=== PATIENT | male | born 1940 | race Caucasian/White ===

== ENCOUNTER → 2017-06-15 | Outpatient (REF) | payer BC | LOC: M LAB REF 19:38 | PROVIDERS: ATTEND Physician Assistant Medical | DX: N30.01 Acute cystitis with hematuria (principal) ==

== ENCOUNTER 2021-05-10 10:38 | Inpatient (IN) | payer MEDICARE, BC ==
[~2021-05-10] VITALS: Ht 157.5 cm; Wt 74.4 kg
--- NOTE | 2021-05-10 11:34 | REPVR ---
PROCEDURE INFORMATION: Exam: CT Cervical Spine Without Contrast Exam date and time: 05/10/2021 11:03 AM Age: 80 years old Clinical indication: Neck pain; Additional info: Fall injury TECHNIQUE: Imaging protocol: Computed tomography images of the cervical spine without contrast. Radiation optimization: All CT scans at this facility use at least one of these dose optimization techniques: automated exposure control; mA and/or kV adjustment per patient size (includes targeted exams where dose is matched to clinical indication); or iterative reconstruction. COMPARISON: No relevant prior studies available. FINDINGS: Bones/joints: There is straightening of the normal cervical lordosis. There is 2 mm of grade 1 retrolisthesis of C4 with respect to C5 and C5 with respect to C6. Normal vertebral body alignment is otherwise preserved. Discs/Spinal canal/Neural foramina: There is severe intervertebral disc space loss at C4/5 and C5/6. Lungs: Lung apices are normal. Soft tissues: Unremarkable. IMPRESSION: No acute findings. Electronically signed by: Nicki Zuluaga On 05/10/2021 11:34:22 AM
--- NOTE | 2021-05-10 11:36 | REPVR ---
PROCEDURE INFORMATION: Exam: CT Head Without Contrast Exam date and time: 05/10/2021 11:03 AM Age: 80 years old Clinical indication: Pain; Headache; Additional info: Fall TECHNIQUE: Imaging protocol: Computed tomography of the head without contrast. Radiation optimization: All CT scans at this facility use at least one of these dose optimization techniques: automated exposure control; mA and/or kV adjustment per patient size (includes targeted exams where dose is matched to clinical indication); or iterative reconstruction. COMPARISON: No relevant prior studies available. FINDINGS: Brain: There is no acute intracranial hemorrhage or mass effect. Moderate diffuse volume loss is within the range of normal for patient age. There are small vessel ischemic changes within the periventricular and subcortical white matter, but the normal eaton-white matter delineation is maintained. Cerebral ventricles: Prominence of the ventricular system is commensurate with volume loss. Paranasal sinuses: There is opacification of ethmoid air cells. Mastoid air cells: Visualized mastoid air cells are well aerated. Bones/joints: Unremarkable. No acute fracture. Soft tissues: Unremarkable. IMPRESSION: No acute hemorrhage or calvarial fracture. Chronic changes. Electronically signed by: Nicki Zuluaga On 05/10/2021 11:36:21 AM
[2021-05-10 11:59] LABS: BASO # 0.1 10^3/uL (0.0-0.2); EOS # 0.5 10^3/uL (0.0-0.5); EOS % 5.4 % (0.0-3.0); HEMATOCRIT 37.2 % (42.0-52.0); HEMOGLOBIN 13.2 g/dl (13.5-17.5); LYMPH # 0.8 10^3/uL (1.5-5.0); LYMPH % 8.6 % (24.0-44.0); MEAN CORPUSCULAR HEMOGLOBIN 31.6 pg (27.0-33.0); MEAN CORPUSCULAR HGB CONC 35.5 g/dl (32.0-36.5); NEUTROPHILS # 6.9 10^3/uL (1.5-8.5); NEUTROPHILS % 73.4 % (36.0-66.0); PLATELET COUNT, AUTOMATED 239 10^3/uL (150-450); RED BLOOD COUNT 4.18 10^6/uL (4.30-6.10); WHITE BLOOD COUNT 9.3 10^3/uL (4.0-10.0)
[2021-05-10 12:40] LABS: ALBUMIN 3.5 GM/DL (3.2-5.2); ALT/SGPT 25 U/L (12-78); BILIRUBIN,DIRECT 0.3 MG/DL (0.0-0.2); BILIRUBIN,TOTAL 1.1 MG/DL (0.2-1.0); BLOOD UREA NITROGEN 10 MG/DL (7-18); CALCIUM LEVEL 8.4 MG/DL (8.8-10.2); CARBON DIOXIDE LEVEL 28 MEQ/L (21-32); CHLORIDE LEVEL 86 MEQ/L (98-107); CK-MB VALUE MASS 11.1 NG/ML (<3.6); CPK CREATINE PHOSPHOKINASE 710 U/L (39-308); CREATININE FOR GFR 0.69 MG/DL (0.70-1.30); GLOMERULAR FILTRATION RATE > 60.0 (>35); GLUCOSE, FASTING 93 MG/DL (70-100); MB/CK RELATIVE INDEX 1.56 (< OR =4); POTASSIUM SERUM 4.2 MEQ/L (3.5-5.1); SODIUM LEVEL 121 MEQ/L (136-145); TOTAL PROTEIN 6.1 GM/DL (6.4-8.2); TROPONIN I < 0.02 NG/ML (< 0.10)
[2021-05-10] MEDS ORDERED: NS 500 ML IV ONE (12:40)
--- NOTE | 2021-05-10 13:04 | REP ---
INDICATION: fall;syncope. COMPARISON: Two view exam of 05/28/2014 TECHNIQUE: Portable FINDINGS: The technique utilized in obtaining the radiograph has magnified the cardiac silhouette and attenuated the interstitial markings. The cardiomediastinal silhouette lung escalante are unchanged. The heart is not enlarged. Lung escalante are clear. There is no change in the osseous structures. Once again, note is made of multiple vertebral body compression deformities. IMPRESSION: No acute cardiopulmonary disease. Other findings as described above. <Electronically signed by Juarez Davidson > 05/10/21 [id number]
[2021-05-10 13:19] LABS: MAGNESIUM LEVEL 2.2 MG/DL (1.8-2.4); NT-PRO BNP 240 PG/ML (<450)
[2021-05-10] MEDS ORDERED: NS 1,000 ML IV SCH (13:25)
[2021-05-10 14:00] LABS: RSV AMPLIFICATION NEGATIVE (NEGATIVE)
--- NOTE | 2021-05-10 14:03 | HPEPDOC ---
[facility] Medical History & Physical Date of Admission May 10, 2021 Date of Service: May 10, 2021 History and Physical CHIEF COMPLAINT: syncope HISTORY OF PRESENT ILLNESS: 80-year-old gentleman presents for a syncopal episode that occurred early this morning while he was urinating. This fall was unwitnessed, but a loud "thud" was heard by his and he was found passed out. He states this has occurred in the remote past. He also notes a several week history of worsening lower extremity edema for which she was recently started on Lasix 20 mg twice a day (two weeks ago). He denies any other medical complaints. He denies chest pain, shortness of breath, abdominal pain, nausea, vomiting, diarrhea. His states he does have dyspnea on exertion. In the emergency room he was found to be orthostatic and IV fluids - NS were administered. PAST MEDICAL HISTORY: #CHF- unknown type #HTN #HLD #osteoporosis PAST SURGICAL HISTORY: #non-invasive back surgery SOCIAL HISTORY: Marital status: Resides in: [place], [place] Tobacco use: Never smoker ETOH: rarely Family History: Non-contributory ALLERGIES: Please see below. REVIEW OF SYSTEMS: Negative except as per HPI HOME MEDICATIONS: Please see below. PHYSICAL EXAMINATION: VITAL SIGNS: See below General: NAD, lying comfortably in bed, elderly HEENT: NC/AT, EOMI Lungs: CTA B/L Heart: +S1S2, RRR, systolic murmur Abd: soft, obese, NT, +BS Ext: 3+ bilateral LE edema Neuro: AAOx3, no gross focal deficits LABORATORY DATA: See below. MICROBIOLOGY: Please see below. A/P: 80-year-old male for syncopal episode during micturition, and worsening lower extremity edema. PMHx of CHF (unknown type), HTN, HLD. Admitted for hyponatremia, lower extremity edema and syncope. #LE edema - LE ultrasound - echocardiogram - telemetry - I/O's - repeat trops #hyponatremia - further labs pending - nephrology c/s pending - taper sertraline - hold ARB #BPH - continue home medications - finasteride, proscar #syncope - telemetry - echocardiogram - check orthostatics #HTN - holding ARB (losartan) - continue verapamil #HLD - continue statin therapy #depression - taper sertraline due to hyponatremia #DVT prophylaxis - mechanical Vital Signs Vital Signs Date Time Temp Pulse Resp B/P (MAP) Pulse Ox O2 Delivery O2 Flow Rate FiO2 05/10/21 13:30 74 173/93 (119) 95 05/10/21 10:39 97.9 18 Room Air Laboratory Data Labs 24H Laboratory Tests 2 05/10/21 11:43: Immature Granulocyte % (Auto) 0.6, Neutrophils (%) (Auto) 73.4H, Lymphocytes (%) (Auto) 8.6L, Monocytes (%) (Auto) 11.0H, Eosinophils (%) (Auto) 5.4H, Basophils (%) (Auto) 1.0, Neutrophils # (Auto) 6.9, Lymphocytes # (Auto) 0.8L, Monocytes # (Auto) 1.0H, Eosinophils # (Auto) 0.5, Basophils # (Auto) 0.1, Nucleated Red Blood Cells % (auto) 0.0, Anion Gap 7L, Glomerular Filtration Rate > 60.0, Calci um Level 8.4L, Magnesium Level 2.2, Total Bilirubin 1.1H, Direct Bilirubin 0.3H, Aspartate Amino Transf (AST/SGOT) 33, Alanine Aminotransferase (ALT/SGPT) 25, Alkaline Phosphatase 61, Total Creatine Kinase 710H, Creatine Kinase MB 11.1H, Creatine Kinase MB Relative Index 1.56, Troponin I < 0.02, LA-Rkc-R-Type Natriuretic Peptide 240, Total Protein 6.1L, Albumin 3.5, Albumin/Globulin Ratio 1.3, Thyroid Stimulating Hormone (TSH) 1.350 05/10/21 13:06: CBC/BMP Laboratory Tests 05/10/21 11:43 Home Medications Scheduled Acetaminophen (Tylenol Extra Strength) 500 Mg Tablet, 1,000 MG PO TID ALTERNATE WITH IBUPROFEN Ascorbic Acid (Vitamin C) 500 Mg Tablet, 1,000 MG PO DAILY Cholecalciferol (Vitamin D3) (Vitamin D3) 1,000 Unit Tablet, 2,000 UNITS PO DAILY Denosumab Injection (Prolia) 60 Mg/1 Ml Syringe, 60 MG SC ASDIRECTED EVERY 6 MONTHS Finasteride (Finasteride) 5 Mg Tablet, 5 MG PO QHS Furosemide (Furosemide) 20 Mg Tablet, 20 MG PO DAILY Gabapentin (Gabapentin) 300 Mg Capsule, 300 MG PO BID Gluc Fernandez/Chondro Fernandez A/Vit C/Mn (Glucosamine Chondroitin Tab) 1 Each Tablet, 1 TAB PO BID Guaifenesin (Guaifenesin) 200 Mg Tablet, 400 MG PO DAILY Ibuprofen (Ibuprofen) 200 Mg Capsule, 200 MG PO TID ALTERNATE WITH TYLENOL Losartan Potassium (Losartan Potassium) 50 Mg Tablet, 50 MG PO DAILY Pravastatin Sodium (Pravastatin Sodium) 20 Mg Tablet, 20 MG PO QHS Psyllium Husk (with Sugar) (Metamucil Powder) 575 Gm Powder, 1 PKT PO DAILY Salmeterol/Fluticasone (Advair 250-50 Diskus) 1 Each Blst.w.dev, 1 PUFF INH BID Sertraline HCl (Sertraline HCl) 50 Mg Tablet, 50 MG PO DAILY Tamsulosin HCl (Flomax) 0.4 Mg Capsule, 0.4 MG PO DAILY TAKES AT 1430 Verapamil HCl (Verapamil HCl) 360 Mg Cap24h.pel, 360 MG PO DAILY Vit C/E/Zn/Coppr/Lutein/Zeaxan (Preservision Areds 2 Softgel) 1 Each Capsule, 1 CAP PO BID Allergies Coded Allergies: lisinopril (Verified Allergy, Unknown, Itching, hives, 05/10/21) A-FIB/CHADSVASC A-FIB History Current/History of A-Fib/PAF?: No KARLOS UMANZOR MD May 10, 2021 14:03
[2021-05-10 14:58] LABS: FREE T4 0.96 NG/DL (0.76-1.46)
[2021-05-10 15:00] LABS: OSMOLALITY SERUM 246 MOSM/KG (280-301)
[2021-05-10 15:02] LABS: OSMOLALITY URINE 89 MOSM/KG (50-1400)
[2021-05-10 15:26] LABS: CREATININE,RANDOM URINE < 13.0 MG/DL; SODIUM,RANDOM URINE 17 MEQ/L
[2021-05-10] MEDS ORDERED: GLUCTAB6 PO (15:28)
[2021-05-10] MEDS ORDERED: PROL60SO SC (15:28)
[2021-05-10] MEDS ORDERED: ACET-897 PO (15:28)
[2021-05-10] MEDS ORDERED: VERA360C PO (15:28)
[2021-05-10] MEDS ORDERED: GABA-282 PO (15:28)
[2021-05-10] MEDS ORDERED: IBUP200C29 PO (15:28)
[2021-05-10] MEDS ORDERED: PRAV20TA2 PO (15:28)
[2021-05-10] MEDS ORDERED: FURO20TA2 PO (15:28)
[2021-05-10] MEDS ORDERED: ADV250INH INH (15:28)
[2021-05-10] MEDS ORDERED: META28.32 PO (15:28)
[2021-05-10] MEDS ORDERED: FINA5TAB2 PO (15:28)
[2021-05-10] MEDS ORDERED: GUAI200T6 PO (15:28)
[2021-05-10] MEDS ORDERED: D31000TA2 PO (15:28)
[2021-05-10] MEDS ORDERED: LOSA50TA88 PO (15:28)
[2021-05-10] MEDS ORDERED: PRES10CA2 PO (15:28)
[2021-05-10] MEDS ORDERED: FLOM0.4C39 PO (15:28)
[2021-05-10] MEDS ORDERED: SERT50TA29 PO (15:28)
[2021-05-10] MEDS ORDERED: VITA-243 PO (15:28)
[2021-05-10 16:06] VITALS: BP_SYST 142; BP_SYST 172; BP_SYST 175; BP_DIAS 77; BP_DIAS 85; BP_DIAS 88
[2021-05-10] MEDS: ACETAMINOPHEN 500 MG TAB PO SCH ×2 (17:19→20:55)
[2021-05-10] MEDS: ADVAIR HFA 115/21MCG INHALER INH SCH (19:24)
[2021-05-10 19:49] LABS: ALBUMIN 3.4 GM/DL (3.2-5.2); BLOOD UREA NITROGEN 10 MG/DL (7-18); CALCIUM LEVEL 7.9 MG/DL (8.8-10.2); CARBON DIOXIDE LEVEL 28 MEQ/L (21-32); CHLORIDE LEVEL 92 MEQ/L (98-107); CREATININE FOR GFR 0.73 MG/DL (0.70-1.30); GLOMERULAR FILTRATION RATE > 60.0 (>35); GLUCOSE, FASTING 108 MG/DL (70-100); PHOSPHORUS LEVEL 3.3 MG/DL (2.5-4.9); POTASSIUM SERUM 4.2 MEQ/L (3.5-5.1); SODIUM LEVEL 127 MEQ/L (136-145)
--- NOTE | 2021-05-10 19:52 | ECGEPIP ---
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
[2021-05-10 20:00] VITALS: BP_SYST 152; BP_SYST 160; BP_SYST 164; BP_DIAS 84; BP_DIAS 90
[2021-05-10] MEDS: PRAVASTATIN 20 MG TAB PO SCH (20:55)
[2021-05-10] MEDS: GABAPENTIN 300 MG CAP PO SCH (20:55)
[2021-05-10] MEDS: FINASTERIDE 5 MG TAB PO SCH (20:55)
--- NOTE | 2021-05-10 23:27 | CR ---
CONSULTATION DATE: 05/10/2021 REQUESTING PHYSICIAN: Dr. Robi Fisher CONSULTING PHYSICIAN: Dr. William REASON FOR CONSULTATION: Management of hyponatremia. CHIEF COMPLAINT: Patient presented to the hospital today after syncope. HISTORY OF PRESENT ILLNESS: Harvey Nielsen is an 80-year-old male with past medical history of hypertension, possible congestive heart failure, osteoporosis, who was recently started on Lasix 20 mg twice a day for lower extremity edema. He had syncope at home today. He was brought to the Emergency Room. Patient complained of worsening weakness. He otherwise denies any chest pain, shortness of breath, nausea, vomiting or abdominal pain. Patient was found to have orthostatic hypotension in the Emergency Room along with a serum sodium of 121. He was admitted under the hospitalist service. He was started on I.V. fluid hydration. Nephrology service was called for further help in the management of this patient. Patient was seen and examined by myself in the evening today at the bedside. His was also present at the bedside. Patient was awake and alert today, and was able to provide me with the history. PAST MEDICAL HISTORY: Hypertension, questionable congestive heart failure, hyperlipidemia, osteoporosis, history of BPH. PAST SURGICAL HISTORY: History of back surgery in the past. FAMILY HISTORY: No significant family history of end-stage renal disease requiring hemodialysis. SOCIAL HISTORY: Patient is a resident of [place], [place]. He denies any smoking, illicit drug abuse or alcohol abuse. ALLERGIES: He is allergic to Lisinopril. REVIEW OF SYSTEMS: CONSTITUTIONAL: He denies any fevers or chills. EYES: He denies any blurry vision, double vision. ENT: He denies any dysphagia, odynophagia, CVS: He denies any chest pain or palpitations. He does report syncope. He does report lower extremity edema. RESPIRATORY: He denies any cough or shortness of breath. GI: He denies any nausea or vomiting. GENITOURINARY: He denies any dysuria or hematuria. MUSCULOSKELETAL: He denies any muscle aches and pains. SKIN: Denies any rashes or ulcers. HEMATOLOGICAL/ONCOLOGICAL: Denies any easy bleeding or bruising. 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 All other review of systems is negative. PHYSICAL EXAMINATION: GENERAL: Patient is awake, alert, oriented x3, lying in bed. VITAL SIGNS: Temperature 97.9 degrees Fahrenheit, blood pressure 164/90, pulse 80, respiratory rate 18, saturating 95% on room air. HEAD/NECK: Extraocular muscles intact. Pupils equally round and reactive to light. Mucous membranes are moist. Neck is supple. Mildly elevated JVD is noted. CARDIOVASCULAR: S1, S2, regular rate. 1+ edema of the bilateral lower extremities. RESPIRATORY: Chest is clear to auscultation bilaterally. Bilateral equal air entry. No rales or rhonchi. ABDOMEN: Soft, positive bowel sounds, nontender. No organomegaly. MUSCULOSKELETAL: No clubbing or cyanosis. Pulses are 2+. 1+ edema of the bilateral lower extremities as mentioned above. RETAIL BUSINESS DEVELOPMENT MANAGER: No focal deficit. Power is 5/5 in all extremities. LABORATORY REVIEW: CBC showed WBC 9.3, hemoglobin 13.2, platelets 239,000. Urinalysis showed urine osmolality was 89, urine creatinine was less than 13, random sodium was 17. BMP on arrival showed sodium 121, potassium 4.2, chloride 86, bicarb 28, BUN 10, creatinine 0.69. Osmolality 246. Calcium 8.4. Total bilirubin 1.1. Albumin 3.5. MICROBIOLOGY: Influenza and COVID-19 is negative. IMAGING: A chest x-ray was done today, which showed no evidence of cardiopulmonary disease. HOME MEDICATIONS: Patient's home medications include Tylenol p.r.n., Vitamin C 1,000 mg p.o. daily, Vitamin D 2,000 units p.o. daily, Prolia 60 mg subcutaneously every 6 months, Finasteride 5 mg p.o. daily, Furosemide 20 mg p.o. daily, Gabapentin 300 mg p.o. twice a day, Guaifenesin 400 mg p.o. daily, Ibuprofen p.r.n., Losartan 50 mg p.o. daily, Pravastatin 20 mg q.h.s., Sertraline 50 mg p.o. daily, Flomax 0.4 mg p.o. daily, Verapamil 360 mg p.o. daily, and a multivitamin. CURRENT INPATIENT MEDICATIONS: Patient's medications were all reviewed by myself. He was given normal saline bolus followed by normal saline 150 cc an hour. I.V. fluids; he is getting Vitamin C 1,000 mg p.o. daily, Finasteride 5 mg p.o. q.h.s., Gabapentin 300 mg p.o. twice a day, Pravachol 20 mg q.h.s., one daily, Advair one puff twice a day. He is on Zoloft 25 mg p.o. daily and Flomax 0.4 mg p.o. daily. ASSESSMENT AND PLAN: 1. Hyponatremia: Patient most likely has hypovolemic hyponatremia, he was on diuretic. He had syncope and orthostasis. He was given normal saline hydration. Sodium has improved from 121 to 127. I am going to hold the I.V. fluids for now because he has improved by 6 mEq since arrival. The rest of the correction will be done tomorrow morning. No further need of I.V. fluid hydration. 2. Hypertension: Patient has orthostatic hypotension, his Verapamil has been stopped. Losartan is also on hold. Anti-hypertensive will be started tomorrow morning once blood pressure gets better. 3. Questionable history of congestive heart failure and lower extremity edema: Patient's LV ejection fraction is not known, he has orthostatic hypotension. I would avoid using diuretics at this time. Also avoid using calcium channel blockers since they might worsen the lower extremity edema. 4. History of depression: Patient is getting Sertraline 25 mg p.o. daily, sometimes it can cause SIADH, however, urine and serum labs do not point towards SIADH at this time. Further dose adjustment will be done tomorrow morning. Thank you for involving me in the care of this patient. I shall be happy to follow the patient along with you tomorrow morning.
[2021-05-11] VITALS (7 sets, daily range): BP systolic 122–178; BP diastolic 64–98
[2021-05-11] MEDS ORDERED: hydrALAZINE 20MG/ML 1ML VIAL (J0360 PER 20MG) IV ONE (02:00)
[2021-05-11 05:34] LABS: HEMATOCRIT 40.5 % (42.0-52.0); HEMOGLOBIN 14.1 g/dl (13.5-17.5); MEAN CORPUSCULAR HEMOGLOBIN 31.3 pg (27.0-33.0); MEAN CORPUSCULAR HGB CONC 34.8 g/dl (32.0-36.5); MEAN CORPUSCULAR VOLUME 89.8 fl (80.0-96.0); PLATELET COUNT, AUTOMATED 277 10^3/uL (150-450); RED BLOOD COUNT 4.51 10^6/uL (4.30-6.10); WHITE BLOOD COUNT 8.2 10^3/uL (4.0-10.0)
[2021-05-11 06:02] LABS: ALBUMIN 3.9 GM/DL (3.2-5.2); ALT/SGPT 25 U/L (12-78); BILIRUBIN,TOTAL 0.8 MG/DL (0.2-1.0); BLOOD UREA NITROGEN 9 MG/DL (7-18); CALCIUM LEVEL 8.3 MG/DL (8.8-10.2); CARBON DIOXIDE LEVEL 23 MEQ/L (21-32); CHLORIDE LEVEL 97 MEQ/L (98-107); GLOMERULAR FILTRATION RATE > 60.0 (>35); GLUCOSE, FASTING 131 MG/DL (70-100); POTASSIUM SERUM 3.6 MEQ/L (3.5-5.1); SODIUM LEVEL 130 MEQ/L (136-145); TOTAL PROTEIN 6.4 GM/DL (6.4-8.2)
[2021-05-11] MEDS: ADVAIR HFA 115/21MCG INHALER INH SCH ×2 (08:01→20:04)
[2021-05-11] MEDS: METAMUCIL (PSYLLIUM) PACKET PO SCH (09:19)
[2021-05-11] MEDS: ASCORBIC ACID 500 MG TAB PO SCH (09:20)
[2021-05-11] MEDS: GABAPENTIN 300 MG CAP PO SCH ×2 (09:20→21:31)
[2021-05-11] MEDS: guaiFENesin 200 MG TAB PO SCH (09:20)
[2021-05-11] MEDS: SERTRALINE HCL 25 MG TABLET PO SCH (09:20)
[2021-05-11] MEDS: ACETAMINOPHEN 500 MG TAB PO SCH ×4 (09:20→21:36)
--- NOTE | 2021-05-11 10:24 | IPNPDOC ---
Text Note Date of Service The patient was seen on 05/11/21. NOTE Subjective: Patient seen and examined at bedside. Overnight he received hydralazine 10 mg IV for hypertension. Patient has no new medical complaints this morning. Objective: PHYSICAL EXAMINATION: VITAL SIGNS: See below General: NAD, lying comfortably in bed, elderly HEENT: NC/AT Lungs: CTA B/L Heart: +S1S2, RRR, systolic murmur Abd: soft, obese, NT, +BS Ext: 3+ bilateral LE edema A/P: 80-year-old male for syncopal episode during micturition, and worsening lower extremity edema. PMHx of CHF (unknown type), HTN, HLD. Admitted for hyponatremia, lower extremity edema and syncope. #LE edema - LE ultrasound - echocardiogram - telemetry - I/O's #hyponatremia - much improved - appears to be dehydration - nephrology c/s appreciated - taper sertraline - resume ARB #BPH - continue home medications - finasteride, proscar #syncope - telemetry - echocardiogram - orthostatics positive #HTN - resume ARB (losartan) - continue verapamil #HLD - continue statin therapy #depression - taper sertraline due to hyponatremia #DVT prophylaxis - mechanical VS,Fishbone, I+O VS, Fishbone, I+O Laboratory Tests 05/10/21 11:43 05/10/21 19:10 05/11/21 05:06 Vital Signs Date Time Temp Pulse Resp B/P (MAP) Pulse Ox O2 Delivery O2 Flow Rate FiO2 05/11/21 08:00 97.4 94 20 151/78 (102) 95 Room Air I&O- Last 24 Hours up to 6 AM 05/11/21 06:00 Intake Total 1495 ml Output Total 100 ml Balance 1395 ml KARLOS UMANZOR MD May 11, 2021 10:24
--- NOTE | 2021-05-11 11:21 | REP ---
INDICATION: eval dvt COMPARISON: None. TECHNIQUE: Real time compression and duplex Doppler interrogation of the bilateral lower extremity deep venous system is performed. Compression ultrasound is performed of the bilateral peroneal and posterior tibial veins. FINDINGS: Bilaterally, the common femoral, superficial femoral and popliteal veins are fully compressible with transducer pressure and demonstrate normal spontaneous and phasic flow, without evidence of deep venous thrombosis. No thrombus is seen in the bilateral visualized portions of the peroneal and posterior tibial veins. A cystic structure in the left popliteal fossa measures 3.1 x 1.0 x 3.2 cm. IMPRESSION: No evidence of deep venous thrombosis of the bilateral lower extremity femoral popliteal venous system. <Electronically signed by Onesimo Earl > 05/11/21 [id number]
[2021-05-11] MEDS: METOPROLOL TART 50 MG TAB PO SCH ×2 (12:47→21:31)
[2021-05-11] MEDS: TAMSULOSIN 0.4 MG CAP PO SCH (16:05)
[2021-05-11] MEDS: PRAVASTATIN 20 MG TAB PO SCH (21:30)
[2021-05-11] MEDS: FINASTERIDE 5 MG TAB PO SCH (21:31)
[2021-05-12] VITALS: BP 138/80
--- NOTE | 2021-05-12 02:17 | IPN ---
NEPHROLOGY PROGRESS NOTE DATE: 05/11/2021 SUBJECTIVE: Patient was seen and examined at the bedside today morning. He is afebrile, hemodynamically stable. He is feeling much better today. His hyponatremia has improved; sodium is 130 today. OBJECTIVE: VITAL SIGNS: Temperature 97.4 degrees Fahrenheit, blood pressure 144/70, pulse 69, respiratory rate 18, saturating 96% on room air. INTAKE/OUTPUT: He is having incontinent voids. Urine output is not recorded. Weight in the bed scale is 74.2 kg. PHYSICAL EXAMINATION: GENERAL: Patient is awake, alert, oriented x3, hard of hearing, lying in bed. HEAD/NECK: Extraocular muscles intact. He is wearing a hearing aid. Mucous membranes are moist. Neck is supple. There is no JVD. CVS: S1, S2, regular rate. No edema of the bilateral lower extremities. RESPIRATORY: Chest is clear to auscultation bilaterally. Bilateral equal air entry. No rales or rhonchi. ABDOMEN: Soft, positive bowel sounds, nontender. No organomegaly. MUSCULOSKELETAL: No clubbing or cyanosis. Pulses are 2+. 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 Power is 5/5 in all extremities. LABORATORY REVIEW: CBC showed WBC 8.2, hemoglobin 14, platelets 277,000. BMP showed sodium 130, potassium 3.6, chloride 97, bicarb 23, BUN 9, creatinine 0.8. Calcium 8.3. CURRENT INPATIENT MEDICATIONS: Patient's medications were all reviewed by myself. I started the patient on Metoprolol 50 mg p.o. twice a day. He has been started on Losartan to be started tomorrow morning, however, blood pressures are already getting better with Metoprolol. ASSESSMENT AND PLAN: 1. Hyponatremia: Sodium level is autocorrecting and it was 130 today. Most likely it was secondary to volume depletion. 2. Hypertension: Blood pressure are slightly elevated and patient is tachycardic as well. Verapamil was stopped on admission. I have started the patient on Metoprolol. Losartan will be started tomorrow morning with holding parameters. 3. Possible congestive heart failure: Patient got the echocardiogram done today; official report is pending. Currently he is not on any diuretics at this time. 4. History of depression: Patient's Sertraline was stopped on admission because of association with possible SIADH.
[2021-05-12 04:00] VITALS: BP 142/62
[2021-05-12 05:01] LABS: BASO # 0.1 10^3/uL (0.0-0.2); BASO % 0.9 % (0.0-1.0); EOS # 0.7 10^3/uL (0.0-0.5); HEMATOCRIT 38.5 % (42.0-52.0); HEMOGLOBIN 13.2 g/dl (13.5-17.5); LYMPH # 1.1 10^3/uL (1.5-5.0); LYMPH % 12.4 % (24.0-44.0); MEAN CORPUSCULAR HEMOGLOBIN 31.4 pg (27.0-33.0); MEAN CORPUSCULAR HGB CONC 34.3 g/dl (32.0-36.5); MEAN CORPUSCULAR VOLUME 91.7 fl (80.0-96.0); MONO # 0.9 10^3/uL (0.0-0.8); NEUTROPHILS # 5.8 10^3/uL (1.5-8.5); NEUTROPHILS % 68.1 % (36.0-66.0); PLATELET COUNT, AUTOMATED 241 10^3/uL (150-450); WHITE BLOOD COUNT 8.5 10^3/uL (4.0-10.0)
[2021-05-12 05:43] LABS: BLOOD UREA NITROGEN 15 MG/DL (7-18); CALCIUM LEVEL 8.5 MG/DL (8.8-10.2); CARBON DIOXIDE LEVEL 26 MEQ/L (21-32); CHLORIDE LEVEL 97 MEQ/L (98-107); CREATININE FOR GFR 0.79 MG/DL (0.70-1.30); GLOMERULAR FILTRATION RATE > 60.0 (>35); GLUCOSE, FASTING 98 MG/DL (70-100); POTASSIUM SERUM 3.9 MEQ/L (3.5-5.1); SODIUM LEVEL 130 MEQ/L (136-145)
[2021-05-12 08:00] VITALS: BP 174/68
[2021-05-12] MEDS ORDERED: SLF 3 ML SYR IV PRN (08:00)
[2021-05-12] MEDS ORDERED: LOSARTAN 25 MG TAB PO SCH (09:00)
[2021-05-12] MEDS ORDERED: LOSARTAN 50MG TABLET PO SCH (09:00)
[2021-05-12] MEDS: METAMUCIL (PSYLLIUM) PACKET PO SCH (09:49)
[2021-05-12 09:50] VITALS: BP 174/78
[2021-05-12] MEDS: ASCORBIC ACID 500 MG TAB PO SCH (09:50)
[2021-05-12] MEDS: METOPROLOL TART 50 MG TAB PO SCH (09:50)
[2021-05-12] MEDS: guaiFENesin 200 MG TAB PO SCH (09:50)
[2021-05-12] MEDS: GABAPENTIN 300 MG CAP PO SCH (09:51)
[2021-05-12] MEDS: SERTRALINE HCL 25 MG TABLET PO SCH (09:51)
[2021-05-12] MEDS: ACETAMINOPHEN 500 MG TAB PO SCH ×2 (09:51→16:00)
[2021-05-12] MEDS ORDERED: LOPR1TAB6 PO (10:55)
[2021-05-12] MEDS ORDERED: LOSA25TA14 PO (10:55)
[2021-05-12] MEDS: ADVAIR HFA 115/21MCG INHALER INH SCH (11:11)
[2021-05-12 12:00] VITALS: BP 127/62
--- NOTE | 2021-05-12 13:19 | DS.PDOC ---
Discharge Summary General Date of Admission May 10, 2021 at 14:23 Date of Discharge 05/12/2021 Discharge Summary PROCEDURES PERFORMED DURING STAY: [None]. DISCHARGE DIAGNOSES: #CHF- unknown type #HTN #HLD #osteoporosis COMPLICATIONS/CHIEF COMPLAINT: Hyponatremia, Orthostatic Syncope. 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 His fall was unwitnessed, but a loud "thud" was heard by his and he was found passed out. He states this has occurred in the remote past. He also notes a several week history of worsening lower extremity edema for which she was recently started on Lasix 20 mg twice a day (two weeks ago). He denies any other medical complaints. He denies chest pain, shortness of breath, abdominal pain, nausea, vomiting, diarrhea. His states he does have dyspnea on exertion. In the emergency room he was found to be orthostatic and IV fluids - NS were administered. HOSPITAL COURSE: Patient was admitted for further evaluation and treatment. He had no further symptoms of dizziness or syncope. He was seen in consultation by nephrology for his hyponatremia. His medications were adjusted with concerns for SIADH secondary to his SSRI. His SSRI was subsequently tapered and discontinued.. His sodium auto corrected. Hospital stay was also notable for elevated hypertension, which is addressed with adjusting his medications. Hospital stay was otherwise unremarkable. Patient is being discharged in stable condition with outpatient follow-up with nephrology within 1 week. DISCHARGE MEDICATIONS: Please see below. ALLERGIES: Please see below. PHYSICAL EXAMINATION ON DISCHARGE: VITAL SIGNS: See below General: NAD, lying comfortably in bed, elderly HEENT: NC/AT, EOMI Lungs: CTA B/L Heart: +S1S2, RRR, systolic murmur Abd: soft, obese, NT, +BS Ext: 3+ bilateral LE edema Neuro: AAOx3, no gross focal deficits LABORATORY DATA: Please see below. ACTIVITY: [As tolerated]. DISPOSITION: Discharge home DISCHARGE INSTRUCTIONS: 1. Follow up with nephrology within 1 week DISCHARGE CONDITION: [Stable]. TIME SPENT ON DISCHARGE: 35 minutes. Vital Signs/I&Os Vital Signs Date Time Temp Pulse Resp B/P (MAP) Pulse Ox O2 Delivery O2 Flow Rate FiO2 05/12/21 12:00 97.6 55 21 127/62 (83) 95 Room Air I&O- Last 24 Hours up to 6 AM 05/12/21 06:00 Intake Total 2065 ml Output Total 0 ml Balance 2065 ml Laboratory Data Labs 24H Laboratory Tests 2 05/12/21 04:45: Immature Granulocyte % (Auto) 0.6, Neutrophils (%) (Auto) 68.1H, Lymphocytes (%) (Auto) 12.4L, Monocytes (%) (Auto) 10.0H, Eosinophils (%) (Auto) 8.0H, Basophils (%) (Auto) 0.9, Neutrophils # (Auto) 5.8, Lymphocytes # (Auto) 1.1L, Monocytes # (Auto) 0.9H, Eosinophils # (Auto) 0.7H, Basophils # (Auto) 0.1, Nucleated Red Blood Cells % (auto) 0.0, Anion Gap 7L, Glomerular Filtration Rate > 60.0, Calcium Level 8.5L CBC/BMP Laboratory Tests 05/12/21 04:45 Discharge Medications Scheduled Acetaminophen (Tylenol Extra Strength) 500 Mg Tablet, 1,000 MG PO TID, (Reported) ALTERNATE WITH IBUPROFEN Ascorbic Acid (Vitamin C) 500 Mg Tablet, 1,000 MG PO DAILY, (Reported) Cholecalciferol (Vitamin D3) (Vitamin D3) 1,000 Unit Tablet, 2,000 UNITS PO DAILY, (Reported) Denosumab Injection (Prolia) 60 Mg/1 Ml Syringe, 60 MG SC ASDIRECTED, (Reported) EVERY 6 MONTHS Finasteride (Finasteride) 5 Mg Tablet, 5 MG PO QHS, (Reported) Gabapentin (Gabapentin) 300 Mg Capsule, 300 MG PO BID, (Reported) Gluc Fernandez/Chondro Fernandez A/Vit C/Mn (Glucosamine Chondroitin Tab) 1 Each Tablet, 1 TAB PO BID, (Reported) Guaifenesin (Guaifenesin) 200 Mg Tablet, 400 MG PO DAILY, (Reported) Losartan Potassium (Losartan Potassium) 25 Mg Tablet, 1 TAB PO DAILY Metoprolol Tartrate (Lopressor) 50 Mg Tablet, 50 MG PO BID Pravastatin Sodium (Pravastatin Sodium) 20 Mg Tablet, 20 MG PO QHS, (Reported) Psyllium Husk (with Sugar) (Metamucil Powder) 575 Gm Powder, 1 PKT PO DAILY, (Reported) Salmeterol/Fluticasone (Advair 250-50 Diskus) 1 Each Blst.w.dev, 1 PUFF INH BID, (Reported) Tamsulosin HCl (Flomax) 0.4 Mg Capsule, 0.4 MG PO DAILY, (Reported) TAKES AT 1430 Vit C/E/Zn/Coppr/Lutein/Zeaxan (Preservision Areds 2 Softgel) 1 Each Capsule, 1 CAP PO BID, (Reported) Allergies Coded Allergies: lisinopril (Verified Allergy, Unknown, Itching, hives, 05/10/21) KARLOS UMANZOR MD May 12, 2021 13:19
[2021-05-12] MEDS ORDERED: SLF 3 ML SYR IV SCH (14:00)
[2021-05-12] MEDS: TAMSULOSIN 0.4 MG CAP PO SCH (14:28)
--- NOTE | 2021-05-12 23:32 | IPN ---
NEPHROLOGY PROGRESS NOTE DATE: 05/12/2021 SUBJECTIVE: The patient was seen and examined at the bedside today morning. He is feeling much better. He was getting ready to eat his breakfast when I saw him in the morning. His sodium level is staying stable at 130. Blood pressure was slightly elevated, however he is going to be started on Losartan as well today morning. OBJECTIVE: VITAL SIGNS: Temperature is 97.6 degrees Fahrenheit, blood pressure was 174/68 in the morning, and after Losartan his blood pressure was 127/62, pulse rate 55, respiratory rate of 21, saturating 95% on room air. INTAKE AND OUTPUT: Urine output is not recorded. Weight in the bed scale is 74.4 kg. PHYSICAL EXAMINATION: GENERAL APPEARANCE: The patient is awake, alert, oriented x3, hard of hearing, sitting up in the sofa. HEAD AND NECK: Extraocular muscles intact. Pupils are equally round and reactive to light. Mucous membranes are moist. Neck is supple. There is no jugular venous distention. CARDIOVASCULAR: S1, S2, regular rate. EXTREMITIES: 1+ edema of the bilateral lower extremities. RESPIRATORY: Chest is clear to auscultation bilaterally. Bilaterally currently no rales or rhonchi. ABDOMEN: Soft, positive bowel sounds, nontender, no organomegaly. MUSCULOSKELETAL: Venous stasis changes of the lower extremities with 1+ edema of the lower extremities. [employer]: No focal deficits. Power is 5/5 in all extremities. LAB REVIEW: CBC showed a WBC count of 8.5, hemoglobin 13.2, platelet count 241. BMP showed a sodium of 130, potassium 3.9, chloride 97, bicarbonate 26, BUN 15, creatinine is 0.7. CURRENT INPATIENT MEDICATIONS: The patient's medications were all reviewed by myself. He has been started on Losartan 50 mg p.o. daily. He continues to be on Metoprolol 50 mg p.o. twice daily. There is no significant change in the medications. ASSESSMENT AND PLAN: 1. Hyponatremia the patient's sodium has been staying stable at 130. Avoid use of SSRIs at this time. No need of salt tablets at this time. Okay to start Losartan. He will need to follow up with Nephrology after discharge from the hospital. 2. Hypertension - The patient is on Metoprolol. Losartan 50 mg has been started now. The rest of the hypertensive management will be done as an outpatient. 3. Lower extremity edema - The patient got the echocardiogram done. The report is still pending. I would avoid using the diuretic at this time since the patient was admitted with hypovolemic hyponatremia which got better with IV fluid hydration. 4. History of depression avoid use of SSRIs.
--- NOTE | 2021-05-13 09:00 | ECHO ---
ECHOCARDIOGRAM DATE OF PROCEDURE: 05/11/2021 Age: 80 Gender: Male Height: Weight: REFERRING PHYSICIAN: Robi Fisher M.D. PATIENT LOCATION: Room 3233. REASON FOR STUDY: Syncope. 2D MEASUREMENTS: IVS 1.8 cm LV 2.8 cm LVPW 1.8 cm LA 3.7 cm Aorta 3.4 cm DOPPLER MEASUREMENT Peak velocity across the aortic valve 1.8 m/s Peak velocity across the LVOT 2.0 m/s Mitral E 1.4 Mitral A 2.0 with a ratio of 0.7 Maximum tricuspid valve velocity 2.9 m/s 2D COMMENTS: 1. Moderately increased left ventricular wall thickness with normal left ventricular size and normal global left ventricular systolic function. The estimated left ventricular systolic ejection fraction is 60% to 65%. 2. Normal left atrium. Normal right atrium and right ventricle. 3. The atrial septum appeared to be normal without evidence of defect or shunt. 4. Normal aortic root. 5. No pericardial effusion seen. 6. Mildly calcified aortic valve with normal leaflet excursion. Mildly calcified mitral annulus with normal anterior mitral valve leaflet motion. Normal tricuspid valve. The pulmonic valve and proximal pulmonary artery branches were not well visualized. 7. The inferior vena cava was not visualized. DOPPLER: Detects trace aortic regurgitation, mild mitral regurgitation, and mild tricuspid regurgitation. The calculated pulmonary artery systolic pressure varies between 40 to 50 mmHg. Abnormal relaxation pattern was noted across the mitral valve leaflets, as well as the mitral valve annulus consistent with features of grade 1 left ventricular diastolic dysfunction. IMPRESSION: 1. Normal global left ventricular systolic function with moderate concentric left ventricular hypertrophy. There are some features of grade 1 left ventricular diastolic dysfunction manifested by abnormal relaxation. 2. Aortic valve sclerosis with trivial aortic stenosis. 3. Mitral annular calcification with mild mitral regurgitation. 4. Mild tricuspid regurgitation with probably moderate pulmonary hypertension. 5. Could not rule out hypertrophic restrictive cardiomyopathy, there was a gradient of about 16 mmHg across the LVOT.
== END 2021-05-12 16:34 | disposition home health service (06) | DRG 641 ==
LOC: M ED 10:38 → M ED INP 14:23 → ENRESERV 14:41 → M PCU 16:00
PROVIDERS: ADMIT Internal Medicine; ATTEND Internal Medicine
DX: E87.1 Hypo-osmolality and hyponatremia (principal); I11.0 Hypertensive heart disease with heart failure; I50.9 Heart failure, unspecified; E78.5 Hyperlipidemia, unspecified; M81.0 Age-related osteoporosis without current pathological fracture; I95.1 Orthostatic hypotension; N40.0 Benign prostatic hyperplasia without lower urinary tract symptoms; F32.9 Major depressive disorder, single episode, unspecified; Z79.1 Long term (current) use of non-steroidal anti-inflammatories (NSAID); Z79.899 Other long term (current) drug therapy; Z88.8 Allergy status to other drugs, medicaments and biological substances

== ENCOUNTER → 2021-08-28 | Outpatient (REF) | payer MEDICARE, BC ==
[~2021-08-28] MED LIST: ACET-897 PO; ADV250INH INH; D31000TA2 PO; FINA5TAB2 PO; FLOM0.4C39 PO; FURO20TA2 PO; GABA-282 PO; GLUCTAB6 PO; GUAI200T6 PO; IBUP200C29 PO; LOPR1TAB6 PO; LOSA25TA14 PO; LOSA50TA88 PO; META28.32 PO; PRAV20TA2 PO; PRES10CA2 PO; PROL60SO SC; SERT50TA29 PO; VERA360C PO; VITA-243 PO
== END ==
LOC: M LAB REF 18:43
PROVIDERS: ATTEND Internal Medicine Nephrology
DX: N18.2 Chronic kidney disease, stage 2 (mild) (principal)

== ENCOUNTER → 2022-06-13 | Outpatient (REF) | payer MEDICARE, BC ==
[~2022-06-13] MED LIST changes: -D31000TA2 PO; -GLUCTAB6 PO; +GLUCTAB7 PO; +LOSA25TA13 PO; -LOSA25TA14 PO; +LOSA50TA28 PO; -LOSA50TA88 PO; +VITA100093 PO
[2022-06-13 19:45] LABS: ALBUMIN 3.6 GM/DL (3.2-5.2); BLOOD UREA NITROGEN 13 MG/DL (7-18); CALCIUM LEVEL 8.8 MG/DL (8.8-10.2); CARBON DIOXIDE LEVEL 27 MEQ/L (21-32); CHLORIDE LEVEL 94 MEQ/L (98-107); CREATININE FOR GFR 1.12 MG/DL (0.70-1.30); GLOMERULAR FILTRATION RATE > 60.0 (>35); GLUCOSE, FASTING 111 MG/DL (70-100); MAGNESIUM LEVEL 2.3 MG/DL (1.8-2.4); PHOSPHORUS LEVEL 3.2 MG/DL (2.5-4.9); POTASSIUM SERUM 3.8 MEQ/L (3.5-5.1); SODIUM LEVEL 130 MEQ/L (136-145)
== END ==
LOC: M LAB REF 17:01
PROVIDERS: ATTEND Nurse Practitioner Family
DX: N18.2 Chronic kidney disease, stage 2 (mild) (principal)